=== PATIENT | female | born 1945 | race Two or more races ===

== ENCOUNTER 2016-08-14 07:52 | Day surgery (SDC) | payer MEDICARE ==
[~2016-08-14] VITALS: Ht 157.5 cm; Wt 76.0 kg
[~2016-08-14 07:52] MED LIST: ASPIRIN325 MG PO; COZAAR50 MG PO; FOSAMAX70 MG PO; GLUCOPHAGE XR500 M1 PO; HYDROCHLOROTHIA25 MG PO; JANUMET XR 1001 EACH PO; LANTUS (IN100 UNIT/M SUB-Q; NAMZARIC 28 MG1 EACH PO; NEXIUM40 MG PO; OSCAL + D500 MG PO; SIMVASTATIN20 MG PO; THERA-VITE W/ B1 TAB PO; TRULICITY0.75 MG/0. SUB-Q; TYLENOL325 MG PO
== END 2016-08-14 10:30 | disposition disaster alternative care site (69) ==
LOC: GEND 07:52
PROC: 0D758ZZ Dilation of Esophagus, Via Natural or Artificial Opening Endoscopic (ICD-10-PCS; principal; 2016-08-14)
DX: K44.9 Diaphragmatic hernia without obstruction or gangrene (principal); K20.9 Esophagitis, unspecified; E11.9 Type 2 diabetes mellitus without complications; I10 Essential (primary) hypertension; E78.00 Pure hypercholesterolemia, unspecified; Z79.82 Long term (current) use of aspirin; Z79.899 Other long term (current) drug therapy; Z79.4 Long term (current) use of insulin; Z88.8 Allergy status to other drugs, medicaments and biological substances
CPT/HCPCS: C1726; J2001; J7030

== ENCOUNTER → 2016-11-01 | Outpatient (CLI) | payer MEDICARE | END | disposition disaster alternative care site (69) | LOC: GDIC 15:22 | DX: E11.65 Type 2 diabetes mellitus with hyperglycemia (principal) | CPT/HCPCS: G0108 ==

== ENCOUNTER → 2017-01-10 | Outpatient (CLI) | payer MEDICARE | END | disposition disaster alternative care site (69) | LOC: GBCOE 12:56 | DX: Z12.31 Encounter for screening mammogram for malignant neoplasm of breast (principal) | CPT/HCPCS: G0202 ==

== ENCOUNTER → 2017-01-10 | Outpatient (CLI) | payer MEDICARE ==
--- NOTE | ~2017-01-10 | PUL ---
PATIENT'S NAME: MANUEL [facility]ON [facility] AGE: 71 Y [address] ROOM: [place] [address] LOCATION: [facility] ADMIT DATE: 01/10/2017 Pulmonary DISCHARGE DATE: FAMILY PHYSICIAN: CHRIS RYAN MD ATTENDING PHYSICIAN: CHRIS RYAN NAME OF PROCEDURE: Home Sleep Test DATE OF PROCEDURE: 01/10/17 TECH: [facility] SUMMARY: The patient underwent home sleep testing using a type III device and was studied for 8 hours 24 minutes. In that time there were 68 apneas and 124 hypopneas for an apnea/hypopnea index moderately elevated at 23 events per hour. The patient spent the entire night sleeping supine. Oxygen saturations ranged from 75%-93%. Heart rate ranged from 66 to 96 beats per minute. IMPRESSION: Moderate borderline severe obstructive sleep apnea. PLAN: Patient will receive results from the ordering provider. LAMBERT THURSTON MD [facility]/ /[id number] dtt: 01/25/17 0948 Dipika David E. dtd: 01/15/17 1603
== END | disposition disaster alternative care site (69) ==
LOC: GSLP 11-23 10:00
DX: G47.33 Obstructive sleep apnea (adult) (pediatric) (principal); G47.19 Other hypersomnia; R06.83 Snoring
CPT/HCPCS: G0399